=== PATIENT | female | born 1980 | race Native Hawaiian/Other Pacific Islander ===

== ENCOUNTER 2017-08-06 22:03 | Emergency (ER) | payer OTHER ==
[~2017-08-06] VITALS: Ht 152.4 cm; Wt 56.7 kg
[~2017-08-06 22:03] MED LIST: VIMPAT150 MG PO
[2017-08-06 22:14] VITALS: BP 118/81
[2017-08-06] MEDS ORDERED: LIPITOR20 MG PO (22:28)
[2017-08-06] MEDS ORDERED: DIVA500T2 PO (22:28)
[2017-08-06 23:35] LABS: PLATELET COUNT 144 K/uL (152-353)
[2017-08-06 23:38] LABS: POTASSIUM 3.2 mmol/L (3.6-5.2)
[2017-08-07 00:10] VITALS: TEMP 98
== END 2017-08-07 00:10 | disposition home or self-care (01) ==
LOC: ED 22:03
DX: R56.9 Unspecified convulsions (principal); G43.909 Migraine, unspecified, not intractable, without status migrainosus; B34.9 Viral infection, unspecified
CPT/HCPCS: 36415; 80053; 80164; 83735; 85027; 96372; 99283; J1100; J2175; J2550

== ENCOUNTER 2017-12-27 07:57 | Outpatient (CLI) | payer OTHER ==
[~2017-12-27 07:57] MED LIST changes: +DIVA500T2 PO; +LIPITOR20 MG PO
== END 2017-12-27 21:50 | disposition home or self-care (01) ==
LOC: NM 07:57
DX: R11.0 Nausea (principal)
CPT/HCPCS: A9541

== ENCOUNTER 2018-03-06 07:29 | Outpatient (CLI) | payer OTHER | END 2018-03-06 07:35 | disposition short-term general hospital (02) | LOC: AMB 07:29 | DX: M25.572 Pain in left ankle and joints of left foot (principal) | CPT/HCPCS: A0425; A0429 ==

== ENCOUNTER 2018-03-06 07:37 | Emergency (ER) | payer OTHER ==
[~2018-03-06] VITALS: Ht 152.4 cm; Wt 52.2 kg
[2018-03-06 07:42] VITALS: TEMP 97.7
[2018-03-06 09:00] VITALS: BP 105/82
== END 2018-03-06 09:00 | disposition home or self-care (01) ==
LOC: ED 07:37
DX: S80.02XA Contusion of left knee, initial encounter (principal); W18.39XA Other fall on same level, initial encounter; Y92.89 Other specified places as the place of occurrence of the external cause
CPT/HCPCS: 80307; 96372; 99283; J2175; J2550

== ENCOUNTER 2018-06-19 07:05 | Emergency (ER) | payer OTHER ==
[~2018-06-19] VITALS: Ht 152.4 cm; Wt 54.4 kg
[2018-06-19 07:08] VITALS: TEMP 98.6
[2018-06-19 08:28] LABS: PLATELET COUNT 166 K/uL (152-353)
[2018-06-19 08:46] LABS: POTASSIUM 4.3 mmol/L (3.6-5.2); SODIUM 139 mmol/L (136-145)
[2018-06-19 11:15] VITALS: BP 102/68
== END 2018-06-19 11:15 | disposition home or self-care (01) ==
LOC: ED 07:05
PROVIDERS: Internal Medicine
DX: T42.4X1A Poisoning by benzodiazepines, accidental (unintentional), initial encounter (principal); Y92.89 Other specified places as the place of occurrence of the external cause
CPT/HCPCS: 36415; 80053; 80307; 80320; 81000; 81025; 82140; 82550; 84484; 85027; 96365; 99284

== ENCOUNTER 2018-07-23 02:59 | Emergency (ER) | payer OTHER ==
[~2018-07-23] VITALS: Ht 152.4 cm; Wt 54.4 kg
[2018-07-23] MEDS ORDERED: FENOFIBRATE160 MG PO (03:16)
[2018-07-23] MEDS ORDERED: LIPITOR20 MG PO (03:16)
[2018-07-23] MEDS ORDERED: PANTOPRAZOLE 40MG TA PO (03:17)
[2018-07-23] MEDS ORDERED: CETI10TA PO (03:17)
[2018-07-23] MEDS ORDERED: AMBIEN5 MG PO (03:18)
[2018-07-23] MEDS ORDERED: REQUIP1 MG PO (03:18)
[2018-07-23 03:21] VITALS: TEMP 97.3
[2018-07-23 04:01] LABS: PLATELET COUNT 205 K/uL (152-353)
[2018-07-23 04:06] LABS: POTASSIUM 3.7 mmol/L (3.6-5.2)
[2018-07-23 07:25] VITALS: BP 124/62
== END 2018-07-23 07:25 | disposition home or self-care (01) ==
LOC: ED 02:59
PROVIDERS: Internal Medicine
DX: R10.11 Right upper quadrant pain (principal); R11.2 Nausea with vomiting, unspecified
CPT/HCPCS: 36415; 80053; 85027; 96374; 96375; 99284; J2175; J2550; Q9963

== ENCOUNTER 2018-08-12 17:22 | Emergency (ER) | payer OTHER ==
[~2018-08-12] VITALS: Ht 162.6 cm; Wt 56.7 kg
[~2018-08-12 17:22] MED LIST changes: +AMBIEN5 MG PO; +CETI10TA PO; +FENOFIBRATE160 MG PO; +PANTOPRAZOLE 40MG TA PO; +REQUIP1 MG PO
[2018-08-12 19:07] LABS: PLATELET COUNT 227 K/uL (152-353)
[2018-08-12 22:57] VITALS: BP 117/65; TEMP 98.4
== END 2018-08-12 22:47 | disposition home or self-care (01) ==
LOC: ED 17:22
PROVIDERS: Emergency Medicine
DX: R10.31 Right lower quadrant pain (principal); R11.2 Nausea with vomiting, unspecified
CPT/HCPCS: 36415; 80053; 81000; 81025; 85027; 96360; 96365; 96374; 99284; J2550; Q9963

== ENCOUNTER 2019-12-11 14:54 | Emergency (ER) | payer OTHER ==
[~2019-12-11] VITALS: Ht 162.6 cm; Wt 56.7 kg
[2019-12-11 15:04] VITALS: BP 139/104; TEMP 99.1
[2019-12-11 15:41] LABS: POTASSIUM 3.3 mmol/L (3.6-5.2)
[2019-12-11 15:52] LABS: PLATELET COUNT 218 K/uL (152-353)
[2019-12-11 16:21] LABS: PARTIAL THROMBOPLASTIN TIME 23.1 SECONDS (24.5-33.6)
== END 2019-12-11 16:38 | disposition home or self-care (01) ==
LOC: ED 14:54
PROVIDERS: Hospitalist
DX: K27.9 Peptic ulcer, site unspecified, unspecified as acute or chronic, without hemorrhage or perforation (principal); K29.70 Gastritis, unspecified, without bleeding; R11.2 Nausea with vomiting, unspecified; R10.84 Generalized abdominal pain; G89.29 Other chronic pain
CPT/HCPCS: 80053; 80307; 80320; 81000; 82150; 83690; 85027; 85610; 85730; 93005; 96361; 96374; 99284; J2765

== ENCOUNTER 2020-04-08 14:06 | Outpatient (CLI) | payer OTHER ==
[2020-04-08 14:41] LABS: PLATELET COUNT 279 K/uL (152-353)
[2020-04-08 14:54] LABS: POTASSIUM 3.1 mmol/L (3.6-5.2)
== END 2020-04-08 20:01 | disposition home or self-care (01) ==
LOC: LABW 14:06
PROVIDERS: ATTEND Internal Medicine Gastroenterology
DX: R11.2 Nausea with vomiting, unspecified (principal); R63.4 Abnormal weight loss; R19.7 Diarrhea, unspecified
CPT/HCPCS: 36415; 80053; 82705; 83630; 83993; 85027; 86140; 87015; 87045; 87324; 87328; 87329; 87449; 87899

== ENCOUNTER 2020-05-10 10:56 | Outpatient (CLI) | payer OTHER | END 2020-05-10 22:12 | disposition home or self-care (01) | LOC: LABW 10:56 | PROVIDERS: ATTEND Internal Medicine Gastroenterology | DX: K22.10 Ulcer of esophagus without bleeding (principal) | CPT/HCPCS: 36415; 82941 ==

== ENCOUNTER 2020-06-30 11:11 | Outpatient (CLI) | payer OTHER | END 2020-06-30 19:21 | disposition home or self-care (01) | LOC: RAD 11:11 | PROVIDERS: ATTEND Nurse Practitioner Primary Care | DX: R07.89 Other chest pain (principal); W19.XXXA Unspecified fall, initial encounter ==